=== PATIENT | male | born 1965 | race Caucasian/White ===

== ENCOUNTER → 2018-07-01 | Outpatient (CLI) | payer OTHER ==
[~2018-07-01] MED LIST: ACID CONTROLLER10 MG PO; AMBIEN 10 MG TA10 MG PO; CENTRUM TABLET1 TAB OR; COLACE 100 MG100 MG PO; CRESTOR20 MG PO; CYMBALTA30 MG PO; DEPRESSION MED PO; IBUPROFEN 200200 M1; IBUPROFEN 400400 M1 PO; LEXAPRO20 MG; NORCO 5-325 TA1 EACH PO; ROBAXIN 750 MG750 M1 PO; VITAMIN C + RO500 MG OR; WELLBUTRIN XL300 M1 PO
== END ==
LOC: RAD 12:51
DX: J92.9 Pleural plaque without asbestos (principal); L53.9 Erythematous condition, unspecified

== ENCOUNTER → 2020-02-13 | Outpatient (CLI) | payer OTHER | LOC: CAT 11:51 | PROVIDERS: ATTEND Neuromusculoskeletal Medicine & OMM | DX: Z13.6 Encounter for screening for cardiovascular disorders (principal); I25.10 Atherosclerotic heart disease of native coronary artery without angina pectoris; E78.00 Pure hypercholesterolemia, unspecified ==